=== PATIENT | female | born 1965 | race Caucasian/White ===

== ENCOUNTER 2021-07-27 23:51 | Inpatient (IN) | payer OTHER, SELFPAY ==
[2021-07-28 01:02] VITALS: BP 143/88; PULSE 120; RESP 16; TEMP 35.9; O2SAT 95
[2021-07-28 01:06] VITALS: BMI 59.8
--- NOTE | 2021-07-28 01:39 | PC.ADMIT ---
55 year old woman transfered from [facility]. Diagnosis: SI/Overdose. Tox negative, covid negative. Pt alert and oriented X4, VSS. Upon admission pt appeared well groomed, speech is clear, with normal rhythm, tone and erica. Denies SI/HI, raised concern about loosing her apartment. pt reports her family don't care about her. Pt overdose on 50-60 0.5mg of cyclobenzaprine. Her son and daughter came to her apartment and then upon seeing her called for ambulance.
[2021-07-28 08:51] LABS: Estimated Average Glucose 255 mg/dL; Hemoglobin A1c % 10.5 %
[2021-07-28 08:54] LABS: Cholesterol 217 mg/dL; HDL Cholesterol 38 mg/dL; LDL Cholesterol Calculated 128 mg/dl; Triglycerides 256 mg/dL
[2021-07-28 09:00] VITALS: BP 110/60; PULSE 99; RESP 14
[2021-07-28 09:16] VITALS: BP 110/60; PULSE 99
[2021-07-28] MEDS: Gabapentin 300 MG CAPSULE 900 MG PO ×3 (09:16→22:08)
[2021-07-28] MEDS: busPIRone HCl 10 MG TABLET 20 MG PO ×2 (09:16→22:08)
[2021-07-28] MEDS: lisinopriL 20 MG TABLET PO (09:16)
[2021-07-28] MEDS: Omeprazole 20 MG CAPSULE.DR PO (09:16)
[2021-07-28] MEDS: PARoxetine HCL 30 MG TABLET 60 MG PO (09:16)
[2021-07-28 10:04] LABS: Vitamin D 25-OH Total 17.9 ng/mL (>30)
[2021-07-28 10:23] LABS: Reflex LDLD? No
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
[2021-07-28 12:26] LABS: Glucose, Whole Blood 436 mg/dL (60-115)
[2021-07-28] MEDS: Insulin Lispro 100 UNIT/ML 3 ML VIAL SUBCUT ×2 (12:51→16:57)
[2021-07-28] MEDS: Insulin Lispro 100 UNIT/ML 3 ML VIAL 10 UNIT SUBCUT ×3 (13:27→22:22)
--- NOTE | 2021-07-28 13:31 | HO.HSGERICON ---
History of Present Illness Data of Consult Service Date: 07/28/21 Primary Care Provider: Nonstaff Physician HPI Reason for consult: Routine medical exam for new psych admission This is a 55 yo F with a PMH of DM, HTN, Vit D def, ? GERD who is admitted to the inpatient psych unit. Medical consultation is requested for routine medical H&P per policy. The patient is seen and examined in her room. She denies any active physical or medical complaints. She endorses a history of DM for which she reports she is on Humulin 70/30 100 units BID. She reports her A1C was higher than its current value which is over 10. Review of Systems Review of Systems: General - no fevers or chills Cardiovascular - no chest pain Respiratory - no shortness of breath or cough Abdominal- no abdominal pain, nausea, vomiting, diarrhea Psych -- see psych documentation Yes all other systems are reviewed and are negative [facility] Medical History (Updated 07/28/21 @ 13:42 by Shakir Quevedo MD) Glaucoma IDDM (insulin dependent diabetes mellitus) Pertinent family history: Diabetes Social History Household Members: Children Housing: Apartment Do you presently have visiting nurse or other home services: No Patient Tobacco Use Status: Never used Tobacco Smoked in Last 30 Days: No e-Cigarette/Vaping Use: Never Used Patient Interested in Nicotine Replacement: No Second Hand Smoke Exposure: No Use of substances other than those prescribed or required for medical reasons: No Have you been hit, kicked, punched, or otherwise hurt by someone within the past year? If so, by whom?: No Do you feel safe in your current relationship?: Yes Is there a partner from a previous relationship who is making you feel unsafe now?: No Are you made to feel afraid or neglected: No Spiritual Healthcare Practices: no Islam Healthcare Practices: voodoo Cultural Healthcare Practices: N/A Advance Directives: No Advance Directives Information Provided: No Do you have thoughts of harming others: None Do you have a plan to hurt others: No Plan Recently lost weight without trying: No Nutrition Risks: Diabetes new onset/Uncontrolled Patient : No : No Poor oral hygiene: No Meds Allergies Allergy/AdvReac Type Severity Reaction Status Date / Time No Known Allergies Allergy Verified 07/28/21 02:02 Active Medications: Current Medications Generic Name Dose Route Start Last Admin Trade Name Freq PRN Reason Stop Dose Admin Acetaminophen 650 mg 07/28/21 02:02 Acetaminophen 325 Mg Tablet PO Q6H PRN Headache/Pain Mild Scale (1-3) Al Hydroxide/Mg Hydroxide 30 ml 07/28/21 02:02 Magnesium Hydrox/Alum Hydrox 30 Ml Oral.Susp PO Q6H PRN Heartburn/Nausea Albuterol Sulfate 2 puff 07/28/21 02:39 Albuterol Sulfate 90 Mcg 8 Gm Inhaler INHALE RQ6H PRN asthma Buspirone HCl 20 mg 07/28/21 09:00 07/28/21 09:16 Buspirone Hcl 10 Mg Tablet PO 20 mg BID REPLACED BY [facility] Administration Dorzolamide HCl 1 drop 07/28/21 15:00 Dorzolamide Hcl 2 % Ophth An 10 Ml Drpbtl EYE-BOTH TID REPLACED BY [facility] Gabapentin 900 mg 07/28/21 09:00 07/28/21 09:16 Gabapentin 300 Mg Capsule PO 900 mg TID PRETTY Administration Hydroxyzine HCl 25 mg 07/28/21 02:02 Hydroxyzine Hcl 25 Mg Tablet PO Q6H PRN Anxiety Insulin Glargine 50 unit 07/28/21 13:30 Insulin Glargine,Hum.Rec.Anlog 100 Unit/Ml 10 Ml Vial SUBCUT BID REPLACED BY [facility] Insulin Human Lispro 0 unit 07/28/21 07:30 07/28/21 12:51 Insulin Lispro 100 Unit/Ml 3 Ml Vial SUBCUT 10 unit QIDACHS REPLACED BY [facility] Administration Protocol Latanoprost 1 drop 07/28/21 21:00 Latanoprost 0.005 % Ophth An 2.5 Ml Drops EYE-BOTH BEDTIME REPLACED BY [facility] Lisinopril 20 mg 07/28/21 09:00 07/28/21 09:16 Lisinopril 20 Mg Tablet PO 20 mg DAILY REPLACED BY [facility] Administration Protocol Magnesium Hydroxide 30 ml 07/28/21 02:02 Milk Of Magnesia 30 Ml Oral.Susp PO DAILY PRN Constipation Omeprazole 20 mg 07/28/21 06:30 07/28/21 09:16 Omeprazole 20 Mg Capsule.Dr PO 20 mg DAILY@0630 PRETTY Administration Paroxetine HCl 60 mg 07/28/21 09:00 07/28/21 09:16 Paroxetine Hcl 30 Mg Tablet PO 60 mg DAILY PRETTY Administration Trazodone HCl 50 mg 07/28/21 02:02 Trazodone Hcl 50 Mg Tablet PO BEDTIME PRN Insomnia Valacyclovir HCl 500 mg 07/28/21 09:00 07/28/21 11:34 Valacycyclovir Hcl 500 Mg Tablet PO 500 mg DAILY PRETTY Administration Home Medications Medication Instructions Recorded Confirmed Last Taken Type buspirone 10 mg tablet 2 tab PO BID 07/28/21 07/28/21 Unknown History dorzolamide 2 % eye drops 1 drp OPHTHALMIC (EYE) TID 07/28/21 07/28/21 Unknown History ergocalciferol (vitamin D2) 1,250 1 cap PO QWEEK 07/28/21 07/28/21 Unknown History mcg (50,000 unit) capsule gabapentin 300 mg capsule 3 cap PO TID 07/28/21 07/28/21 Unknown History insulin human U-100 NPH-regulr 100 unit SUBCUT BID 07/28/21 07/28/21 Unknown History 70-30 mix 100 unit/mL subcutaneous susp (Humulin 70/30 U-100 Insulin) latanoprost 0.005 % eye drops 1 drp OPHTHALMIC (EYE) BEDTIME 07/28/21 07/28/21 Unknown History lisinopril 20 mg tablet 1 tab PO DAILY 07/28/21 07/28/21 Unknown History omeprazole 20 mg capsule,delayed 1 cap PO BID 07/28/21 07/28/21 Unknown History release paroxetine HCl 30 mg tablet 2 tab PO DAILY 07/28/21 07/28/21 Unknown History valacyclovir 500 mg tablet 1 tab PO DAILY 07/28/21 07/28/21 Unknown History Results Labs Labs: Laboratory Results - last 24 hr 07/28/21 07/28/21 07/28/21 08:03 08:03 12:21 POC Glucose 436 H* Estimat Average Glucose 255 Hemoglobin A1c % 10.5 Triglycerides 256 Cholesterol 217 LDL Cholesterol, Calc 128 HDL Cholesterol 38 25-OH Vitamin D Total 17.9 Assessment and Plan (1) Hypertension: Status: Acute (2) IDDM (insulin dependent diabetes mellitus): Status: Acute This is a 55 yo F with a PMH of IDDM, HTN, Glucoma amongst others who is admitted to the inpatient psych unit. Medical consultation requested for admission H&P per policy. 1. Uncontrolled DM A1C > 10; pt reports this is improved from before She is on 70/30 at home. D/w the pharmacy with the following recs: 60 total units of Humalog, split beteween meals --> will start with 10 units scheduled + sliding scale. For her long acting insulin -- total of 110 units recommended by pharmacy. Will start with 50 units BID lantus and uptitrate from there She should be on a strict diabetic diet. Insulin regime: Humalog 10 units scheduled + sliding scale; Lantus 50 units BID 2. HTN continue her lisinopril 3. Glaucoma continue her eye drops 4. Morbid obesity [facility] outpatient referral to Bariatrics Please reconsult if her sugars remain uncontrolled. Physical Exam Vital Signs: Last Vital Signs Temp 96.6 F L 07/28/21 01:02 Pulse 99 07/28/21 09:16 Resp 14 07/28/21 09:00 BP 110/60 07/28/21 09:16 Pulse Ox 95 07/28/21 01:02 Body Mass Index 59.8 Const Other: General - no acute distress, appears comfortable Cardiovascular - regular rate and rhythm, S1-S2 Lungs - normal respiratory effort, clear to auscultation bilaterally, no wheezing Abdomen - soft, nontender, no rebound or guarding Extremities - no edema bilaterally Neuro - awake and alert, no focal deficits; CN 2-12 in tact Neuro Cranial nerves: Yes CN's II-XII intact bilaterally
[2021-07-28] MEDS: Insulin Glargine,Hum.rec.anlog 100 UNIT/ML 10 ML VIAL 50 UNIT SUBCUT ×2 (14:02→22:12)
[2021-07-28 15:08] LABS: Glucose, Whole Blood 445 mg/dL (60-115)
[2021-07-28 16:51] LABS: Glucose, Whole Blood 501 mg/dL (60-115)
[2021-07-28 18:00] VITALS: BP 133/64; PULSE 110; RESP 20; TEMP 36.1; O2SAT 97
[2021-07-28 19:10] LABS: Glucose, Whole Blood 347 mg/dL (60-115)
[2021-07-28 21:13] LABS: Glucose, Whole Blood 272 mg/dL (60-115)
[2021-07-28] MEDS: Dorzolamide HCl 2 % Ophth Sol 10 ML DRPBTL 1 DROP EYE-BOTH (22:22)
[2021-07-28] MEDS: Latanoprost 0.005 % Ophth Sol 2.5 ML DROPS 1 DROP EYE-BOTH (22:23)
[2021-07-29 08:37] LABS: Glucose, Whole Blood 360 mg/dL (60-115)
[2021-07-29] MEDS: PARoxetine HCL 30 MG TABLET 60 MG PO (08:50)
[2021-07-29] MEDS: busPIRone HCl 10 MG TABLET 20 MG PO (08:51)
[2021-07-29] MEDS: Gabapentin 300 MG CAPSULE 900 MG PO ×3 (08:51→21:32)
[2021-07-29] MEDS: Insulin Lispro 100 UNIT/ML 3 ML VIAL SUBCUT ×4 (08:52→21:31)
[2021-07-29] MEDS: Omeprazole 20 MG CAPSULE.DR PO (08:52)
[2021-07-29] MEDS: Insulin Lispro 100 UNIT/ML 3 ML VIAL 10 UNIT SUBCUT ×4 (08:53→21:32)
[2021-07-29] MEDS: Insulin Glargine,Hum.rec.anlog 100 UNIT/ML 10 ML VIAL 50 UNIT SUBCUT ×2 (08:54→21:30)
[2021-07-29 09:16] VITALS: BP 117/66; PULSE 111
[2021-07-29] MEDS: lisinopriL 20 MG TABLET PO (09:16)
[2021-07-29] MEDS: Dorzolamide HCl 2 % Ophth Sol 10 ML DRPBTL 1 DROP EYE-BOTH ×3 (09:16→21:45)
[2021-07-29 11:39] LABS: Glucose, Whole Blood 338 mg/dL (60-115)
[2021-07-29 16:38] LABS: Glucose, Whole Blood 315 mg/dL (60-115)
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
[2021-07-29 17:06] VITALS: BP 120/70; PULSE 99
[2021-07-29 21:17] LABS: Glucose, Whole Blood 277 mg/dL (60-115)
[2021-07-29] MEDS: busPIRone HCl 10 MG TABLET 30 MG PO (21:33)
[2021-07-29] MEDS: Latanoprost 0.005 % Ophth Sol 2.5 ML DROPS 1 DROP EYE-BOTH (21:46)
[2021-07-29] MEDS: Nystatin Cream 15 GM TUBE 1 APPL TOPICAL (22:21)
[2021-07-30] MEDS: Omeprazole 20 MG CAPSULE.DR PO (05:40)
[2021-07-30 06:00] VITALS: BP 130/59; PULSE 96; RESP 16; TEMP 36.4; O2SAT 97
[2021-07-30 06:36] LABS: Glucose, Whole Blood 134 mg/dL (60-115)
[2021-07-30] MEDS: Insulin Lispro 100 UNIT/ML 3 ML VIAL 10 UNIT SUBCUT ×4 (08:25→21:26)
[2021-07-30] MEDS: Insulin Glargine,Hum.rec.anlog 100 UNIT/ML 10 ML VIAL 50 UNIT SUBCUT ×2 (08:26→21:23)
[2021-07-30 08:30] VITALS: BP 142/60
[2021-07-30] MEDS: Gabapentin 300 MG CAPSULE 900 MG PO ×3 (08:37→21:28)
[2021-07-30] MEDS: busPIRone HCl 10 MG TABLET 20 MG PO (08:37)
[2021-07-30] MEDS: PARoxetine HCL 30 MG TABLET 60 MG PO (08:37)
[2021-07-30 08:38] VITALS: BP 142/60; PULSE 107
[2021-07-30] MEDS: lisinopriL 20 MG TABLET PO (08:38)
[2021-07-30] MEDS: Nystatin Cream 15 GM TUBE 1 APPL TOPICAL ×2 (08:46→21:29)
[2021-07-30] MEDS: Dorzolamide HCl 2 % Ophth Sol 10 ML DRPBTL 1 DROP EYE-BOTH ×3 (08:46→21:28)
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
[2021-07-30 12:18] LABS: Glucose, Whole Blood 287 mg/dL (60-115)
[2021-07-30] MEDS: Insulin Lispro 100 UNIT/ML 3 ML VIAL SUBCUT ×3 (12:43→21:25)
--- NOTE | 2021-07-30 15:55 | MHC.CLN ---
NUTRITION CONSULT PATIENT FOLLOWS VEGAN DIET AT HOME AND IS FOLLOWING HERE. DINING SERVICES PROVIDED PATIENT WITH LIST OF FOODS AND ABLE TO MAKE OWN FOOD CHOICES. DIABETIC DIET INCREASED TO 1800 KCAL TO ALLOW FOR MORE CHOICES. EATS RICE, BEANS AND VEGETABLES FREQUENTLY AT HOME. APPEARED PLEASED WITH VARIETY OF VEGAN FOOD CHOICES.
[2021-07-30 16:51] LABS: Glucose, Whole Blood 248 mg/dL (60-115)
[2021-07-30 17:34] VITALS: BP 122/58; PULSE 97; RESP 18; TEMP 36.2; O2SAT 100
[2021-07-30 21:23] LABS: Glucose, Whole Blood 254 mg/dL (60-115)
[2021-07-30] MEDS: busPIRone HCl 10 MG TABLET 30 MG PO (21:28)
[2021-07-30] MEDS: Latanoprost 0.005 % Ophth Sol 2.5 ML DROPS 1 DROP EYE-BOTH (21:29)
[2021-07-31 06:33] LABS: Glucose, Whole Blood 123 mg/dL (60-115)
[2021-07-31 06:39] VITALS: BP 154/68; PULSE 91; RESP 18; TEMP 36.3; O2SAT 97
[2021-07-31] MEDS: busPIRone HCl 10 MG TABLET 20 MG PO (08:45)
[2021-07-31] MEDS: Omeprazole 20 MG CAPSULE.DR PO (08:45)
[2021-07-31 08:46] VITALS: BP 154/68; PULSE 91
[2021-07-31] MEDS: Insulin Glargine,Hum.rec.anlog 100 UNIT/ML 10 ML VIAL 50 UNIT SUBCUT ×2 (08:46→21:39)
[2021-07-31] MEDS: lisinopriL 20 MG TABLET PO (08:46)
[2021-07-31] MEDS: Gabapentin 300 MG CAPSULE 900 MG PO ×3 (08:46→21:44)
[2021-07-31] MEDS: PARoxetine HCL 30 MG TABLET 60 MG PO (08:46)
[2021-07-31] MEDS: Insulin Lispro 100 UNIT/ML 3 ML VIAL SUBCUT ×4 (08:47→21:41)
[2021-07-31] MEDS: Dorzolamide HCl 2 % Ophth Sol 10 ML DRPBTL 1 DROP EYE-BOTH ×3 (08:57→21:50)
[2021-07-31] MEDS: Nystatin Cream 15 GM TUBE 1 APPL TOPICAL (08:57)
[2021-07-31 11:45] LABS: Glucose, Whole Blood 241 mg/dL (60-115)
[2021-07-31] MEDS: Insulin Lispro 100 UNIT/ML 3 ML VIAL 10 UNIT SUBCUT ×3 (12:48→21:42)
[2021-07-31 17:42] LABS: Glucose, Whole Blood 276 mg/dL (60-115)
[2021-07-31 17:58] VITALS: BP 153/72; PULSE 98; RESP 20; TEMP 36.1; O2SAT 98
[2021-07-31 21:36] LABS: Glucose, Whole Blood 330 mg/dL (60-115)
[2021-07-31] MEDS: busPIRone HCl 10 MG TABLET 30 MG PO (21:45)
[2021-07-31] MEDS: Latanoprost 0.005 % Ophth Sol 2.5 ML DROPS 1 DROP EYE-BOTH (21:50)
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
[2021-08-01 06:00] VITALS: PULSE 96; TEMP 36.4; O2SAT 100
[2021-08-01 06:25] LABS: Glucose, Whole Blood 232 mg/dL (60-115)
[2021-08-01] MEDS: PARoxetine HCL 30 MG TABLET 60 MG PO (08:33)
[2021-08-01 08:34] VITALS: BP 176/88; PULSE 104
[2021-08-01] MEDS: lisinopriL 20 MG TABLET PO (08:34)
[2021-08-01] MEDS: busPIRone HCl 10 MG TABLET 20 MG PO (08:34)
[2021-08-01] MEDS: Insulin Lispro 100 UNIT/ML 3 ML VIAL SUBCUT ×3 (08:35→22:04)
[2021-08-01] MEDS: Gabapentin 300 MG CAPSULE 900 MG PO ×3 (08:35→22:01)
[2021-08-01] MEDS: Omeprazole 20 MG CAPSULE.DR PO (08:35)
[2021-08-01] MEDS: Insulin Lispro 100 UNIT/ML 3 ML VIAL 10 UNIT SUBCUT ×3 (08:36→22:05)
[2021-08-01] MEDS: Nystatin Cream 15 GM TUBE 1 APPL TOPICAL (08:37)
[2021-08-01] MEDS: Dorzolamide HCl 2 % Ophth Sol 10 ML DRPBTL 1 DROP EYE-BOTH ×3 (08:37→20:11)
[2021-08-01] MEDS: Insulin Glargine,Hum.rec.anlog 100 UNIT/ML 10 ML VIAL 50 UNIT SUBCUT ×2 (08:37→22:03)
[2021-08-01 11:51] LABS: Glucose, Whole Blood 401 mg/dL (60-115)
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
[2021-08-01 16:39] LABS: Glucose, Whole Blood 396 mg/dL (60-115)
[2021-08-01 17:41] VITALS: BP 119/63; PULSE 105; TEMP 36.1; O2SAT 95
--- NOTE | 2021-08-01 18:00 | PC.NURSE ---
Pts POC AT 1630 WAS 396, notified, no new orders. Pt says , I'm eating what I want because the kitchen can't get my tray right.' This included large chocolate chip cookies from peer, maira crackers with butter and pudding. Pt was asked if she was trying to harm herself through her diabetes and she replied, yes . On- call notified and met with pt. Several attempts made to correct meals and food options , but pt said, it doesn't matter , my family doesn't want me. Pt was tearful and resisitant to interventions. On-call held 1630 insulin (20ux),reassess at next POC at HS.
[2021-08-01] MEDS: Latanoprost 0.005 % Ophth Sol 2.5 ML DROPS 1 DROP EYE-BOTH (20:11)
[2021-08-01 20:37] LABS: Glucose, Whole Blood 550 mg/dL (60-115)
[2021-08-01] MEDS: busPIRone HCl 10 MG TABLET 30 MG PO (22:01)
[2021-08-02 06:00] VITALS: BP 171/72; PULSE 84; RESP 18; TEMP 35.9; O2SAT 98
[2021-08-02] MEDS: Omeprazole 20 MG CAPSULE.DR PO ×2 (06:21→17:20)
[2021-08-02 07:04] LABS: Glucose, Whole Blood 192 mg/dL (60-115)
[2021-08-02] MEDS: Gabapentin 300 MG CAPSULE 900 MG PO ×2 (08:44→21:10)
[2021-08-02 08:45] VITALS: BP 165/82; PULSE 100
[2021-08-02] MEDS: lisinopriL 20 MG TABLET PO (08:45)
[2021-08-02] MEDS: PARoxetine HCL 30 MG TABLET 60 MG PO (08:45)
[2021-08-02] MEDS: busPIRone HCl 10 MG TABLET 20 MG PO (08:45)
[2021-08-02] MEDS: Insulin Lispro 100 UNIT/ML 3 ML VIAL SUBCUT ×4 (08:46→21:13)
[2021-08-02] MEDS: Insulin Glargine,Hum.rec.anlog 100 UNIT/ML 10 ML VIAL 50 UNIT SUBCUT (08:46)
[2021-08-02] MEDS: Insulin Lispro 100 UNIT/ML 3 ML VIAL 10 UNIT SUBCUT ×3 (08:47→17:23)
[2021-08-02] MEDS: Nystatin Cream 15 GM TUBE 1 APPL TOPICAL (09:02)
[2021-08-02] MEDS: Dorzolamide HCl 2 % Ophth Sol 10 ML DRPBTL 1 DROP EYE-BOTH ×2 (09:03→21:10)
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
[2021-08-02 11:58] LABS: Glucose, Whole Blood 305 mg/dL (60-115)
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
[2021-08-02 17:06] LABS: Glucose, Whole Blood 478 mg/dL (60-115)
[2021-08-02 19:55] VITALS: BP 138/65; PULSE 105; TEMP 36.6
[2021-08-02 20:48] LABS: Glucose, Whole Blood 414 mg/dL (60-115)
[2021-08-02] MEDS: busPIRone HCl 10 MG TABLET 30 MG PO (21:11)
[2021-08-02] MEDS: Insulin Lispro 100 UNIT/ML 3 ML VIAL 14 UNIT SUBCUT (21:14)
[2021-08-02] MEDS: Insulin Glargine,Hum.rec.anlog 100 UNIT/ML 10 ML VIAL 55 UNIT SUBCUT (21:14)
[2021-08-02] MEDS: Latanoprost 0.005 % Ophth Sol 2.5 ML DROPS 1 DROP EYE-BOTH (21:16)
[2021-08-03 06:00] VITALS: BP 128/58; PULSE 93; RESP 16
[2021-08-03] MEDS: Omeprazole 20 MG CAPSULE.DR PO ×2 (06:03→16:59)
[2021-08-03 06:18] LABS: Glucose, Whole Blood 231 mg/dL (60-115)
[2021-08-03] MEDS: Acetaminophen 325 MG TABLET 650 MG PO (09:27)
[2021-08-03] MEDS: PARoxetine HCL 30 MG TABLET 60 MG PO (09:27)
[2021-08-03] MEDS: busPIRone HCl 10 MG TABLET 20 MG PO (09:27)
[2021-08-03] MEDS: Dorzolamide HCl 2 % Ophth Sol 10 ML DRPBTL 1 DROP EYE-BOTH ×3 (09:27→21:46)
[2021-08-03] MEDS: Gabapentin 300 MG CAPSULE 900 MG PO ×3 (09:27→21:41)
[2021-08-03] MEDS: Insulin Glargine,Hum.rec.anlog 100 UNIT/ML 10 ML VIAL 55 UNIT SUBCUT ×2 (09:34→21:43)
[2021-08-03] MEDS: Insulin Lispro 100 UNIT/ML 3 ML VIAL 14 UNIT SUBCUT ×4 (09:34→21:45)
[2021-08-03] MEDS: Insulin Lispro 100 UNIT/ML 3 ML VIAL SUBCUT ×4 (09:34→21:44)
[2021-08-03 09:46] VITALS: BP 128/58; PULSE 93
[2021-08-03 12:24] LABS: Glucose, Whole Blood 280 mg/dL (60-115)
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
[2021-08-03 17:34] LABS: Glucose, Whole Blood 295 mg/dL (60-115)
[2021-08-03 20:05] VITALS: BP 129/58; PULSE 95; TEMP 35.8
[2021-08-03 21:31] LABS: Glucose, Whole Blood 336 mg/dL (60-115)
[2021-08-03] MEDS: Latanoprost 0.005 % Ophth Sol 2.5 ML DROPS 1 DROP EYE-BOTH (21:40)
[2021-08-03] MEDS: busPIRone HCl 10 MG TABLET 30 MG PO (21:41)
[2021-08-04 06:00] VITALS: BP 115/80; PULSE 86; RESP 18; TEMP 36.1; O2SAT 100
[2021-08-04 06:12] LABS: Glucose, Whole Blood 218 mg/dL (60-115)
[2021-08-04] MEDS: Insulin Lispro 100 UNIT/ML 3 ML VIAL 14 UNIT SUBCUT ×2 (09:31→13:24)
[2021-08-04] MEDS: Insulin Lispro 100 UNIT/ML 3 ML VIAL SUBCUT ×2 (09:32→13:21)
[2021-08-04] MEDS: Insulin Glargine,Hum.rec.anlog 100 UNIT/ML 10 ML VIAL 55 UNIT SUBCUT (09:32)
[2021-08-04 09:33] VITALS: BP 177/81; PULSE 113
[2021-08-04] MEDS: lisinopriL 20 MG TABLET PO (09:33)
[2021-08-04] MEDS: Gabapentin 300 MG CAPSULE 900 MG PO (09:33)
[2021-08-04] MEDS: PARoxetine HCL 30 MG TABLET 60 MG PO (09:33)
[2021-08-04] MEDS: Omeprazole 20 MG CAPSULE.DR PO (09:33)
[2021-08-04] MEDS: busPIRone HCl 10 MG TABLET 20 MG PO (09:33)
[2021-08-04] MEDS: Dorzolamide HCl 2 % Ophth Sol 10 ML DRPBTL 1 DROP EYE-BOTH (09:35)
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
[2021-08-04 12:45] LABS: Glucose, Whole Blood 299 mg/dL (60-115)
== END 2021-08-04 15:20 | disposition home or self-care (01) | DRG 751 ==
PROVIDERS: Registered Nurse; Admitting Provider Psychiatry & Neurology Psychiatry; Visit Provider Psychiatry & Neurology Psychiatry
DX: F33.2 Major depressive disorder, recurrent severe without psychotic features (principal); R45.851 Suicidal ideations; Z68.43 Body mass index [BMI] 50.0-59.9, adult; F43.12 Post-traumatic stress disorder, chronic; I10 Essential (primary) hypertension; K21.9 Gastro-esophageal reflux disease without esophagitis; F43.25 Adjustment disorder with mixed disturbance of emotions and conduct; E66.01 Morbid (severe) obesity due to excess calories; E11.65 Type 2 diabetes mellitus with hyperglycemia; H40.9 Unspecified glaucoma; Z79.4 Long term (current) use of insulin; Z79.899 Other long term (current) drug therapy
CPT/HCPCS: 36415; 80061; 82306; 82947; 83036